=== PATIENT | male | born 1950 | race Caucasian/White ===

== ENCOUNTER → 2020-06-07 09:08 | Outpatient (CLI) | payer MEDICARE, SELFPAY ==
--- NOTE | 2020-06-07 | DI.MRI.S_ITS ---
PROCEDURE: MR WRIST LT WO CON INDICATIONS: LOCALIZED SWELLING TECHNIQUE: Noncontrast coronal proton density fast spin echo and T2 fast spin echo with fat saturation; coronal 3-D gradient echo, axial T1 spin echo and T2 fast spin echo with fat saturation, sagittal T1 spin echo through the wrist. COMPARISON: None. FINDINGS: Image quality: Excellent. Bones and cartilage: Carpal bones are normally aligned. 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 Erosion secondary to inflammatory arthropathy particularly involving ulnar styloid cannot be excluded. There is small amount of wrist joint fluid, no gross intra-articular loose body. Carpal ligaments: Thickened scapholunate ligament with intrasubstance T2 hyperintense signal is seen suggestive of sprain/low-grade intrasubstance partial-thickness tear. No full-thickness scapholunate ligament rupture. Lunotriquetral ligament is intact. In the absence of intra-articular contrast, the extrinsic carpal ligaments are not well identified. On sagittal images, the pisohamate ligament appears intact. Triangular fibrocartilage complex: Heterogeneous signal within triangular fibrocartilage complex is seen concerning for complex tear. The extensor carpi ulnaris tendon is normal in location and morphology. Tendons and soft tissues: The carpal tunnel structures appear normal, including the median nerve. The ulnar nerve appears normal within Guyon's canal. All six extensor tendon compartments demonstrate normal morphology, without pathologic tendon sheath fluid. 12 x 13 x 6 mm cystic area adjacent to dorsal aspect of distal ulna and appears to be communicating with distal radial ulnar joint, which may represent a ganglion cyst in this area. IMPRESSION: 1. 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 Subcortical cystic changes particularly involving ulnar styloid, erosion secondary to inflammatory arthropathy cannot be excluded. No fracture or dislocation. 2. Possible ganglion cyst measures 12 x 13 x 6 mm in size over dorsal aspect of distal ulna and communicates with distal radioulnar joint. 3. Suggestion of complex tear involving triangular fibrocartilage . 4. Suggestion of sprain/low-grade partial-thickness tear involving scapholunate ligament. Lunotriquetral ligament is intact. 5. Wrist tendons are grossly intact. Dictated by: Sascha Chavez M.D. on 06/07/2020 at 10:27 Approved by: Sascha Chavez M.D. on 06/07/2020 at 11:31
== END ==
PROVIDERS: Referring Provider Orthopaedic Surgery; Visit Provider Orthopaedic Surgery
DX: R22.32 Localized swelling, mass and lump, left upper limb (principal)
CPT/HCPCS: 73221